=== PATIENT | female | born 1930 | race Caucasian/White ===

== ENCOUNTER → 2017-01-05 | Outpatient (REF) ==
[~2017-01-05] MED LIST: ASPIRIN 81M81 MG/TA2 PO; DUTOPROL 12.5 M1 TE1 PO; FOLIC ACID0.4 MG PO; IRON TABLETS325 MG PO; MAGNESIUM ELEME30 MG PO; MIRAPEX 0.0.125 MG/T PO; NORCO 325 MG-101 TAB PO; OMEGA-31000 MG PO; OYSTER CALCIUM500 M1 PO; PRINZIDE 25 MG-1 TAB PO; VITAMIN C500 MG PO; VITAMIN D 1001000 IU PO
== END ==
LOC: ZLAB.WCH 10:32
DX: Z01.89 Encounter for other specified special examinations (principal)

== ENCOUNTER → 2017-08-29 | Outpatient (REF) ==
[2017-08-29 19:03] LABS: THYROID STIMULATING HORMONE 1.65 uIU/mL (0.465-4.680)
== END ==
LOC: ZLAB.WCH 18:21
PROVIDERS: Nurse Practitioner Family
DX: Z01.89 Encounter for other specified special examinations (principal)

== ENCOUNTER → 2017-12-09 | Outpatient (REF) | LOC: ZLAB.WCH 14:19 | DX: Z01.89 Encounter for other specified special examinations (principal) ==